=== PATIENT | female | born 1990 | race Caucasian/White ===

== ENCOUNTER 2018-12-06 12:52 | Emergency (ER) | payer OTHER ==
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
[2018-12-06] MEDS ORDERED: IBUPROFEN 200 MG TAB PO ONE (13:22)
[2018-12-06 14:22] VITALS: BP 114/80
== END 2018-12-06 14:21 | disposition home or self-care (01) ==
DX: S80.01XA Contusion of right knee, initial encounter (principal); Y04.8XXA Assault by other bodily force, initial encounter; Y92.480 Sidewalk as the place of occurrence of the external cause; F90.9 Attention-deficit hyperactivity disorder, unspecified type; Z79.899 Other long term (current) drug therapy